=== PATIENT | male | born 1985 | race African-American/Black ===

== ENCOUNTER 2017-04-06 11:55 | Emergency (ER) | payer BC ==
[2017-04-06 12:08] VITALS: BP 128/84
[2017-04-06] MEDS ORDERED: Sodium Chloride 0.9% 10 ML Syringe FLUSH PRN (12:20)
[2017-04-06] MEDS ORDERED: Aspirin 81 MG Tab.Chew PO ONE (12:20)
--- NOTE | 2017-04-06 12:33 | EDM.PDOC ---
ED HPI GENERAL MEDICAL PROBLEM - General Chief Complaint: Chest Pain Stated Complaint: CHEST PAIN X 4 DAYS Time Seen by Provider: 04/06/17 12:10 Source of Information: Reports: Patient History Limitations: Reports: No Limitations - History of Present Illness INITIAL COMMENTS - FREE TEXT/NARRATIVE: 31-year-old male presents for evaluation treatment of chest pressure. Reports that he has been experiencing chest pressure for the last 4 days. He states when he first started he was sitting in class on Wednesday. He reports that discomfort as a pressure located on the upper left side of his chest and around the sternal notch. He states that it is painful to take a deep breath. He denies any lightheadedness, dizziness, leg pain, shortness of breath, nausea or vomiting. Patient reports his primary care provider is Dr. Cole. He has not established with a new provider since Dr. Corrales has left. States he's had similar episodes of this in the past and was diagnosed with inflammation. He reports that he was instructed to lose some weight which he did but is now starting to increase again. Duration: Day(s): (4) Chest Pain Score (Numeric/FACES): 5 - Related Data Allergies Allergy/AdvReac Type Severity Reaction Status Date / Time Penicillins Allergy Cannot Verified 04/06/17 12:05 Remember Home Meds: Home Meds Naproxen [Naprosyn] 500 mg PO Q12HR PRN #30 tablet 02/14/16 [Rx] Past Medical History - Past Health History Medical/Surgical History: Denies Medical/Surgical History Social & Family History - Tobacco Use Smoking Status *Q: Never Smoker - Alcohol Use Days Per Week of Alcohol Use: 1 - Recreational Drug Use Recreational Drug Use: No ED ROS GENERAL - Review of Systems Review Of Systems: See Below Constitutional: Denies: Fever Respiratory: Reports: Pleuritic Chest Pain. Denies: Shortness of Breath, Cough Cardiovascular: Reports: Chest Pain. Denies: Edema GI/Abdominal: Denies: Nausea, Vomiting Musculoskeletal: Denies: Leg Pain Neurological: Denies: Dizziness, Syncope ED EXAM, GENERAL - Physical Exam Exam: See Below Exam Limited By: No Limitations General Appearance: Alert, WD/WN, No Apparent Distress Eye Exam: Bilateral Eye: Normal Inspection Ears: Normal External Exam Nose: Normal Inspection Throat/Mouth: Normal Inspection, Normal Lips, Normal Voice, No Airway Compromise Respiratory/Chest: No Respiratory Distress, Lungs Clear, Normal Breath Sounds Cardiovascular: Normal Peripheral Pulses, Regular Rate, Rhythm, No Murmur GI/Abdominal: Soft, Non-Tender Neurological: Alert, Oriented, Normal Cognition Psychiatric: Normal Affect, Normal Mood Skin Exam: Warm, Dry, Normal Color EKG INTERPRETATION EKG Date: 04/06/17 Time: 12:15 Rhythm: NSR Rate (Beats/Min): 86 [place]: Normal P-Wave: Present QRS: Normal ST-T: Normal QT: Normal EKG Interpretation Comments: NSR at [address] segment elevation in V5, V6, I and II - diffuse early repolarization pattern. Essentially ECG is unchanged compared to one from . Reviewed by myself and Dr. Retana. Course - Vital Signs Last Recorded V/S: Last Vital Signs Temp 36.4 C 04/06/17 12:05 Pulse 90 04/06/17 12:05 Resp 16 04/06/17 12:05 BP 128/84 04/06/17 12:05 Pulse Ox 99 04/06/17 12:05 - Orders/Labs/Meds Orders: Active Orders 24 hr Category Date Time Status Cardiac Monitoring [RC] . DIRECTED Care 04/06/17 12:20 Active EKG Documentation Completion [RC] ASDIRECTED Care 04/06/17 12:44 Active Peripheral IV Care [RC] . DIRECTED Care 04/06/17 12:21 Active Sodium Chloride 0.9% [Saline Flush] Med 04/06/17 12:20 Active 10 ml FLUSH ASDIRECTED PRN Peripheral IV Insertion Adult [OM.PC] Routine Oth 04/06/17 12:20 Ordered EKG 12 Lead [EK] Stat Ther 04/06/17 12:44 Ordered Medication Orders Sodium Chloride (Saline Flush) 10 ml FLUSH ASDIRECTED PRN PRN Reason: Keep Vein Open Last Admin: 04/06/17 12:44 Dose: 10 ml Labs: Laboratory Tests 04/06/17 04/06/17 04/06/17 Range/Units 12:30 12:30 12:30 WBC 8.09 (4.23-9.07) K/mm3 RBC 5.33 (4.63-6.08) M/mm3 Hgb 15.3 (13.7-17.5) gm/L Hct 43.8 (40.1-51.0) % MCV 82.2 (79.0-92.2) fl MCH 28.7 (25.7-32.2) pg MCHC 34.9 (32.2-35.5) g/dl RDW Std Deviation 42.2 (35.1-43.9) fL Plt Count 163 (163-337) K/mm3 MPV 10.5 (9.4-12.3) fl Neut % (Auto) 66.4 (34.0-67.9) % Lymph % (Auto) 24.0 (21.8-53.1) % [place] % (Auto) 9.3 (5.3-12.2) % Eos % (Auto) 0.1 L (0.8-7.0) Baso % (Auto) 0.1 (0.1-1.2) % Neut # (Auto) 5.37 (1.78-5.38) K/mm3 Lymph # (Auto) 1.94 (1.32-3.57) K/mm3 [place] # (Auto) 0.75 (0.30-0.82) K/mm3 Eos # (Auto) 0.01 L (0.04-0.54) K/mm3 Baso # (Auto) 0.01 (0.01-0.08) K/mm3 PT 10.8 (8.0-13.0) SECONDS INR 0.99 APTT 29 (22-36) SECONDS D-Dimer, Quantitative 0.47 (0.19-0.59) mg/L Sodium 141 (136-145) mEq/L Potassium 3.6 (3.5-5.1) mEq/L Chloride 104 (98-107) mEq/L Carbon Dioxide 26 (21-32) mEq/L Anion Gap 14.6 (5-15) BUN 15 (7-18) mg/dL Creatinine 0.7 (0.7-1.3) mg/dL Est Cr Clr Drug Dosing 139.25 mL/min Estimated GFR (MDRD) > 60 (>60) mL/min BUN/Creatinine Ratio 21.4 H (14-18) Glucose 95 (74-106) mg/dL Calcium 9.2 (8.5-10.1) mg/dL Magnesium 1.9 (1.8-2.4) mg/dl Total Bilirubin 0.7 (0.2-1.0) mg/dL AST 18 (15-37) U/L ALT 48 (16-63) U/L Alkaline Phosphatase 63 (46-116) U/L CK-MB (CK-2) < 0.5 (0-3.6) ng/ml Troponin I < 0.017 (0.00-0.056) ng/mL Total Protein 7.9 (6.4-8.2) g/dl Albumin 4.2 (3.4-5.0) g/dl Globulin 3.7 gm/dL Albumin/Globulin Ratio 1.1 (1-2) Meds: Medications Generic Name Dose Route Start Last Admin Trade Name Freq PRN Reason Stop Dose Admin Sodium Chloride 10 ml 04/06/17 12:20 04/06/17 12:44 Saline Flush FLUSH 10 ml ASDIRECTED PRN Administration Keep Vein Open Discontinued Medications Generic Name Dose Route Start Last Admin Trade Name Freq PRN Reason Stop Dose Admin Aspirin 324 mg 04/06/17 12:20 04/06/17 12:43 Aspirin PO 04/06/17 12:21 324 mg ONETIME ONE Administration Al Hydroxide/Mg Hydroxide 30 0 ml 04/06/17 14:08 04/06/17 14:20 ml/ Lidocaine HCl 15 ml PO 04/06/17 14:09 45 ml ONETIME ONE Administration - Radiology Interpretation Free Text/Narrative:: chest xray shows no acute intrathoracic process. - Re-Assessments/Exams Free Text/Narrative Re-Assessment/Exam: 04/06/17 14:10 I reviewed the EKG, chest x-ray and lab results with the patient. Chest pain is currently 4 out of 10. He is not in any obvious distress. Plan will be to discharge him after a GI cocktail; I feel this is likely reflux causing his discomfort. Follow-up with family medicine within 1 week. Discharge instructions as documented. 04/06/17 14:31 Pain improved. Will discharge at this time. Departure - Departure Time of Disposition: 14:10 Disposition: Home, Self-Care 01 Condition: Fair Clinical Impression: Chest pain, non-cardiac Instructions: Nonspecific Chest Pain Referrals: PCP,None [Primary Care Provider] - Sam Keating [Physician] - Forms: ED Department Discharge Additional Instructions: Awuq-ake-objioge Tylenol and Motrin as needed for discomfort. I recommend starting an xwui-mup-esfqcqq PPI such as Nexium or Prilosec. Follow-up with family medicine within [address] Naranjo. Please call [phone] Naranjo. Please return to the ER if your symptoms change or worsen. - My Orders Last 24 Hours: My Active Orders 04/06/17 12:20 Cardiac Monitoring [RC] . DIRECTED Sodium Chloride 0.9% [Saline Flush] 10 ml FLUSH ASDIRECTED PRN Peripheral IV Insertion Adult [OM.PC] Routine 04/06/17 12:21 Peripheral IV Care [RC] . DIRECTED 04/06/17 12:44 EKG Documentation Completion [RC] ASDIRECTED EKG 12 Lead [EK] Stat - Assessment/Plan Last 24 Hours: My Active Orders 04/06/17 12:20 Cardiac Monitoring [RC] . DIRECTED Sodium Chloride 0.9% [Saline Flush] 10 ml FLUSH ASDIRECTED PRN Peripheral IV Insertion Adult [OM.PC] Routine 04/06/17 12:21 Peripheral IV Care [RC] . DIRECTED 04/06/17 12:44 EKG Documentation Completion [RC] ASDIRECTED EKG 12 Lead [EK] Stat
[2017-04-06] MEDS ORDERED: Alum Hydrox/Mag Hydrox/Simeth 30 ML, Lidocaine 2% 15 ML PO ONE ×2 (14:08)
--- NOTE | 2017-04-06 14:46 | CR ---
Chest: Portable view of the chest was obtained. Comparison: Prior chest x-ray of 02/14/16. Heart size and mediastinum are within normal limits for portable technique. Lungs are clear. Bony structures are grossly intact. Impression: 1. Nothing acute is identified on portable chest x-ray. Diagnostic code #1
== END 2017-04-06 14:52 | disposition home or self-care (01) ==
LOC: JD.ED 11:55
DX: R07.89 Other chest pain (principal); Z88.0 Allergy status to penicillin
CPT/HCPCS: 36415; 71010; 80053; 82553; 83735; 84484; 85025; 85379; 85610; 85730; 93005; 99285; A9270; J7050; 93010

== ENCOUNTER 2017-08-14 18:39 | Emergency (ER) | payer BC ==
[2017-08-14 18:54] VITALS: BP 116/74
--- NOTE | 2017-08-14 19:26 | EDM.PDOC ---
ED HPI GENERAL MEDICAL PROBLEM - General Chief Complaint: Chest Pain Stated Complaint: CHEST PAIN Time Seen by Provider: 08/14/17 19:10 Source of Information: Reports: Patient History Limitations: Reports: No Limitations - History of Present Illness INITIAL COMMENTS - FREE TEXT/NARRATIVE: The patient states that he has had sharp upper sternal chest pain waxing and waning over the past 4 days. The pain is made worse if he bends forward, but he has not noticed any difference if he is upright versus lying back. He reports dyspnea on exertion, but no dyspnea at rest. No recent nausea, diaphoresis, or sense of impending doom. The patient states that he has been taking pkow-evt-kfmkzsa Aleve over the past 2 days, with some relief. The patient states that he has had similar symptoms twice in the past, 4 years ago, and last year. He states that medical workup that time were negative. The patient does not have a PCP. Upper Chest Pain Score (Numeric/FACES): 6 - Related Data Allergies Allergy/AdvReac Type Severity Reaction Status Date / Time Penicillins Allergy Cannot Verified 08/14/17 18:51 Remember Home Meds: Home Meds Naproxen [Naprosyn] 500 mg PO Q12HR PRN #30 tablet 02/14/16 [Rx] Past Medical History - Past Health History Medical/Surgical History: Denies Medical/Surgical History Social & Family History - Tobacco Use Smoking Status *Q: Never Smoker Second Hand Smoke Exposure: No - Caffeine Use Caffeine Use: Reports: None - Alcohol Use Alcohol Use History: No - Recreational Drug Use Recreational Drug Use: No - Living Situation & Occupation Living situation: Reports: Single, with Significant Other (Fiance), with Family (3 kids) Occupation: Employed ([employer] WORK[employer]) ED ROS GENERAL - Review of Systems Review Of Systems: ROS reveals no pertinent complaints other than HPI. ED EXAM, GENERAL - Physical Exam Exam: See Below Exam Limited By: No Limitations General Appearance: Alert, WD/WN, No Apparent Distress Eye Exam: Bilateral Eye: Normal Inspection Ears: Normal External Exam, Hearing Grossly Normal Nose: Normal Inspection, No Blood Throat/Mouth: Normal Inspection, Normal Lips, Normal Voice, No Airway Compromise Head: Atraumatic, Normocephalic Neck: Normal Inspection, Full Range of Motion Respiratory/Chest: No Respiratory Distress, Lungs Clear, Normal Breath Sounds, No Accessory Muscle Use, Chest Non-Tender (including to upper sternum). No: Pleural Rub Cardiovascular: Normal Peripheral Pulses, Regular Rate, Rhythm, No Edema, No Gallop, No JVD, No Murmur, No Rub Peripheral Pulses: 4+: Radial (L), Radial (R) GI/Abdominal: Normal Bowel Sounds, Soft, Non-Tender, No Organomegaly, No Distention, No Abnormal Bruit, No Mass (Male) Exam: Deferred Rectal (Males) Exam: Deferred Back Exam: Normal Inspection, Full Range of Motion, NT Extremities: Normal Inspection, Normal Range of Motion, No Pedal Edema, Normal Capillary Refill Neurological: Alert, Oriented, Normal Cognition, No Motor/Sensory Deficits Psychiatric: Normal Affect Skin Exam: Warm, Dry, Intact, Normal Color, No Rash EKG INTERPRETATION EKG Date: 08/14/17 Time: 19:09 Rhythm: NSR Rate (Beats/Min): 85 [place]: Normal P-Wave: Present QRS: Normal ST-T: Elevated (diffuse, c/w pericarditis) QT: Normal Comparison: No Change (04/06/2017) Course - Vital Signs Last Recorded V/S: Last Vital Signs Temp 36.2 C 08/14/17 18:52 Pulse 86 08/14/17 18:52 Resp 18 08/14/17 18:52 BP 116/74 08/14/17 18:52 Pulse Ox 99 08/14/17 18:52 - Orders/Labs/Meds Orders: Active Orders 24 hr Category Date Time Status EKG Documentation Completion [RC] ASDIRECTED Care 08/14/17 19:17 Active Chest 2V [CR] Stat Exams 08/14/17 19:26 Taken EKG 12 Lead [EK] Stat Ther 08/14/17 19:16 Ordered Labs: Laboratory Tests 08/14/17 08/14/17 08/14/17 Range/Units 19:19 19:19 19:19 WBC 6.89 (4.23-9.07) K/mm3 RBC 4.78 (4.63-6.08) M/mm3 Hgb 14.0 (13.7-17.5) gm/L Hct 41.1 (40.1-51.0) % MCV 86.0 (79.0-92.2) fl MCH 29.3 (25.7-32.2) pg MCHC 34.1 (32.2-35.5) g/dl RDW Std Deviation 45.4 H (35.1-43.9) fL Plt Count 195 (163-337) K/mm3 MPV 10.7 (9.4-12.3) fl Neut % (Auto) 60.7 (34.0-67.9) % Lymph % (Auto) 27.9 (21.8-53.1) % [place] % (Auto) 10.6 (5.3-12.2) % Eos % (Auto) 0.6 L (0.8-7.0) Baso % (Auto) 0.1 (0.1-1.2) % Neut # (Auto) 4.18 (1.78-5.38) K/mm3 Lymph # (Auto) 1.92 (1.32-3.57) K/mm3 [place] # (Auto) 0.73 (0.30-0.82) K/mm3 Eos # (Auto) 0.04 (0.04-0.54) K/mm3 Baso # (Auto) 0.01 (0.01-0.08) K/mm3 PT 10.2 (8.0-13.0) SECONDS INR 0.95 APTT 29 (22-36) SECONDS D-Dimer, Quantitative 1.03 H (0.19-0.59) mg/L Sodium 140 (136-145) mEq/L Potassium 4.1 (3.5-5.1) mEq/L Chloride 103 (98-107) mEq/L Carbon Dioxide 30 (21-32) mEq/L Anion Gap 11.1 (5-15) BUN 13 (7-18) mg/dL Creatinine 1.1 (0.7-1.3) mg/dL Est Cr Clr Drug Dosing 85.42 mL/min Estimated GFR (MDRD) > 60 (>60) mL/min BUN/Creatinine Ratio 11.8 L (14-18) Glucose 92 (74-106) mg/dL Calcium 9.4 (8.5-10.1) mg/dL Total Bilirubin 0.3 (0.2-1.0) mg/dL AST 43 H (15-37) U/L ALT 57 (16-63) U/L Alkaline Phosphatase 83 (46-116) U/L Troponin I < 0.017 (0.00-0.056) ng/mL Total Protein 7.7 (6.4-8.2) g/dl Albumin 3.8 (3.4-5.0) g/dl Globulin 3.9 gm/dL Albumin/Globulin Ratio 1.0 (1-2) - Re-Assessments/Exams Free Text/Narrative Re-Assessment/Exam: 08/14/17 20:21 Two-view chest radiograph appears to be grossly normal. Cardiac silhouette is within normal limits. No pulmonary vascular congestion. No pleural effusions. No focal infiltrate. No pneumothorax. Formal read per the Radiologist pending. 08/14/17 20:34 Test results discussed with the patient. With the exception of the patient's ECG , the patient's workup is unremarkable. A D-dimer was ordered per chest pain protocol, however, since the patient's pain is felt in the upper sternum, and not in an area that has pulmonary pleura, I do not suspect a PE. The patient's history and ECG suggest pericarditis. The curious thing is that this is the third episode. I will discharge the patient home with recommendations that he take an cwrs-wzo-thjmhel NSAID such as Aleve or ibuprofen, as well as a referral to Cardiology. The patient requests a note for work so that he does not have to return until Wednesday. Departure - Departure Time of Disposition: 20:36 Disposition: Home, Self-Care 01 Condition: Good (Pericarditis) Clinical Impression: Pericarditis Qualifiers: Pericarditis type: unspecified type Chronicity: acute Qualified Code(s): I30.9 - Acute pericarditis, unspecified Instructions: Nonspecific Chest Pain, [id number] Referrals: Van Shwa MD [Resident] - Forms: ED Department Discharge, ED Return to Work/School Form Additional Instructions: You were seen in the emergency room for 4 days of upper central chest pain. Workup in the ER included blood work, a chest x-ray, and an ECG. Your ECG showed changes consistent with pericarditis. The remainder of her workup was unremarkable. You are MOST LIKELY suffering from pericarditis, a viral infection of the sac that your heart sits in. Take kvzy-dbs-tkyxuks ibuprofen, 2-3 tablets (400-600 mg) every 8 hours, with food, OR one tablet of douj-rbl-wjuclif Aleve every 12 hours, with food. A note for work has been written. You may return to work on 08/16/2017. Because this is the third time that this has happened, we recommend that you follow-up with Dr. Van Shaw, a [employer] in [place]. If any other problems, please do not hesitate to return to the ER. - My Orders Last 24 Hours: My Active Orders 08/14/17 19:16 EKG 12 Lead [EK] Stat 08/14/17 19:17 EKG Documentation Completion [RC] ASDIRECTED 08/14/17 19:26 Chest 2V [CR] Stat - Assessment/Plan Last 24 Hours: My Active Orders 08/14/17 19:16 EKG 12 Lead [EK] Stat 08/14/17 19:17 EKG Documentation Completion [RC] ASDIRECTED 08/14/17 19:26 Chest 2V [CR] Stat
--- NOTE | 2017-08-15 12:21 | CR ---
Chest: Two views of the chest were obtained. Comparison: Prior chest x-ray of 04/06/17. Heart size and mediastinum are within normal limits. Lungs appear to be clear. Bony structures are unremarkable. Impression: 1. Nothing acute is appreciated on two-view chest x-ray. Diagnostic code #1
== END 2017-08-14 21:01 | disposition home or self-care (01) ==
LOC: JD.ED 18:39
DX: I30.9 Acute pericarditis, unspecified (principal); Z88.0 Allergy status to penicillin
CPT/HCPCS: 36415; 71046; 71046-26; 80053; 84484; 85025; 85379; 85610; 85730; 93005; 93010; 99284-25; 99285-25

== ENCOUNTER 2017-12-11 05:53 | Day surgery (SDC) | payer BC, MEDICAID ==
[2017-12-11] MEDS ORDERED: HYDROmorphone 0.5 MG/0.5 ML SYRINGE IVPUSH ONE (06:23)
[2017-12-11] MEDS ORDERED: Metoclopramide 10 MG/2 ML SDV IVPUSH ONE (06:23)
--- NOTE | 2017-12-11 06:29 | EDM.PDOC ---
<Joe Pantoja - Last Filed: 12/11/17 10:46> ED HPI GENERAL MEDICAL PROBLEM - General Chief Complaint: Gastrointestinal Problem Stated Complaint: ANAL AREA PAIN Time Seen by Provider: 12/11/17 06:24 - Related Data Allergies Allergy/AdvReac Type Severity Reaction Status Date / Time Penicillins Allergy Cannot Verified 12/11/17 06:06 Remember Home Meds: Home Meds Naproxen [Naprosyn] 500 mg PO Q12HR PRN #30 tablet 02/14/16 [Rx] Course - Vital Signs Last Recorded V/S: Last Vital Signs Temp 36.5 C 12/11/17 15:30 Pulse 50 L 12/11/17 15:30 Resp 14 12/11/17 15:30 BP 104/68 12/11/17 15:30 Pulse Ox 97 12/11/17 15:30 - Orders/Labs/Meds Orders: Active Orders 24 hr Category Date Time Status Communication Order [RC] ROUTINE Care 12/11/17 13:56 Active Ready for Discharge [RC] PER UNIT ROUTINE Care 12/11/17 13:55 Active Verify Patient Consent Obtain [RC] ASDIRECTED Care 12/11/17 10:56 Active Pelvis w Cont [CT] Stat Exams 12/11/17 07:01 Taken Schedule Procedure [COMM] Urgent Oth 12/11/17 10:56 Ordered Labs: Laboratory Tests 12/11/17 12/11/17 Range/Units 06:25 06:25 WBC 5.84 (4.23-9.07) K/mm3 RBC 5.24 (4.63-6.08) M/mm3 Hgb 15.2 (13.7-17.5) gm/L Hct 44.1 (40.1-51.0) % MCV 84.2 (79.0-92.2) fl MCH 29.0 (25.7-32.2) pg MCHC 34.5 (32.2-35.5) g/dl RDW Std Deviation 43.6 (35.1-43.9) fL Plt Count 182 (163-337) K/mm3 MPV 10.8 (9.4-12.3) fl Neutrophils % (Manual) 37 L (40-60) % Band Neutrophils % 0 (0-10) % Lymphocytes % (Manual) 59 H (20-40) % Atypical Lymphs % 0 % Monocytes % (Manual) 4 (2-10) % Eosinophils % (Manual) 0 L (0.8-7.0) % Basophils % (Manual) 0 L (0.2-1.2) Platelet Estimate Adequate Plt Morphology Comment Normal RBC Morph Comment Normal Sodium 140 (136-145) mEq/L Potassium 3.7 (3.5-5.1) mEq/L Chloride 105 (98-107) mEq/L Carbon Dioxide 24 (21-32) mEq/L Anion Gap 14.7 (5-15) BUN 20 H (7-18) mg/dL Creatinine 1.0 (0.7-1.3) mg/dL Est Cr Clr Drug Dosing 93.10 mL/min Estimated GFR (MDRD) > 60 (>60) mL/min BUN/Creatinine Ratio 20.0 H (14-18) Glucose 85 (74-106) mg/dL Calcium 9.1 (8.5-10.1) mg/dL Total Bilirubin 0.5 (0.2-1.0) mg/dL AST 16 (15-37) U/L ALT 28 (16-63) U/L Alkaline Phosphatase 82 (46-116) U/L C-Reactive Protein < 0.2 (<1.0) mg/dL Total Protein 7.4 (6.4-8.2) g/dl Albumin 4.1 (3.4-5.0) g/dl Globulin 3.3 gm/dL Albumin/Globulin Ratio 1.2 (1-2) Meds: Medications Discontinued Medications Generic Name Dose Route Start Last Admin Trade Name Rigobertoq PRN Reason Stop Dose Admin Hydrocodone Bitart/Acetaminophen 1 tab 12/11/17 14:20 12/11/17 15:14 Roberts 325-5 Mg PO 12/11/17 14:21 1 tab ONETIME ONE Administration Bacitracin Confirm 12/11/17 12:44 Bacitracin Oint Administered 12/11/17 12:45 Dose 15 gm .ROUTE .STK-MED ONE Dexamethasone Confirm 12/11/17 13:41 Dexamethasone Administered 12/11/17 13:42 Dose 20 mg .ROUTE .STK-MED ONE Fentanyl Confirm 12/11/17 12:54 Sublimaze Administered 12/11/17 12:55 Dose 100 mcg .ROUTE .STK-MED ONE Glycopyrrolate Confirm 12/11/17 13:22 Administered 12/11/17 13:23 Dose 1 mg .ROUTE .STK-MED ONE Hydromorphone HCl 0.5 mg 12/11/17 06:23 12/11/17 06:32 Dilaudid IVPUSH 12/11/17 06:24 0.5 mg ONETIME ONE Administration Hydromorphone HCl 0.5 mg 12/11/17 14:45 Dilaudid IVPUSH 12/11/17 14:46 ONETIME ONE Hydromorphone HCl Confirm 12/11/17 14:27 12/11/17 14:28 Dilaudid Administered 12/11/17 14:28 0.5 mg Dose Administration 0.5 mg .ROUTE .STK-MED ONE Dextrose/Sodium Chloride 1,000 mls @ 250 mls/hr 12/11/17 06:30 12/11/17 06:34 Dextrose 5%-Normal Saline IV 250 mls/hr ASDIRECTED ERICK Administration Lidocaine HCl Confirm 12/11/17 12:55 Xylocaine-Mpf 1% Administered 12/11/17 12:56 Dose 4 mls @ as directed .ROUTE .STK-MED ONE Lactated Ringer's Confirm 12/11/17 14:11 Ringers, Lactated Administered 12/11/17 14:12 Dose 1,000 mls @ as directed .ROUTE .STK-MED ONE Iopamidol 150 ml 12/11/17 07:34 12/11/17 07:44 Isovue-300 (61%) IVPUSH 12/11/17 07:35 125 ml ONETIME ONE Administration Ketamine HCl Confirm 12/11/17 12:54 Ketalar Administered 12/11/17 12:55 Dose 500 mg .ROUTE .STK-MED ONE Ketorolac Tromethamine Confirm 12/11/17 13:41 Toradol Administered 12/11/17 13:42 Dose 30 mg .ROUTE .STK-MED ONE Lidocaine HCl Confirm 12/11/17 12:44 12/11/17 13:28 Xylocaine-Mpf 1% Administered 12/11/17 12:45 3 ml Dose Administration 30 ml .ROUTE .STK-MED ONE Metoclopramide HCl 7.5 mg 12/11/17 06:23 12/11/17 06:32 Reglan IVPUSH 12/11/17 06:24 7.5 mg ONETIME ONE Administration Midazolam HCl Confirm 12/11/17 12:54 Versed 1 Mg/Ml Administered 12/11/17 12:55 Dose 2 mg .ROUTE .STK-MED ONE Ondansetron HCl Confirm 12/11/17 14:11 Zofran Administered 12/11/17 14:12 Dose 4 mg .ROUTE .STK-MED ONE Propofol Confirm 12/11/17 12:54 Diprivan 20 Ml Administered 12/11/17 12:55 Dose 600 mg .ROUTE .STK-MED ONE Sodium Chloride 10 ml 12/11/17 07:34 12/11/17 07:46 Saline Flush FLUSH 10 ml ONETIME PRN Administration IV FLUSH - Re-Assessments/Exams Free Text/Narrative Re-Assessment/Exam: 12/11/17 10:[address] of his pelvis showed nothing acute. Dr Alexandra came to see the patient and he could not examine the affected area so he will take him to the OR to do an exam. Departure - Departure Time of Disposition: 10:50 Disposition: DC/Tfer to [facility] Condition: Good Clinical Impression: Rectal pain, Acute posterior anal fissure - Discharge Information - My Orders Last 24 Hours: My Active Orders 12/11/17 07:01 Pelvis w Cont [CT] Stat - Assessment/Plan Last 24 Hours: My Active Orders 12/11/17 07:01 Pelvis w Cont [CT] Stat <Irwin Retana - Last Filed: 12/11/17 19:54> ED HPI GENERAL MEDICAL PROBLEM - General Source of Information: Reports: Patient History Limitations: Reports: No Limitations - History of Present Illness INITIAL COMMENTS - FREE TEXT/NARRATIVE: 32-year-old male presents to the ED with a 10 day history of gradually worsening anal pain. To the point that he can barely walk or sit. Nose noted fever or chills. Bowel movements are tremendously painful. Even passing his water is painful. He has tried nifedipine cream as he had an anal fissure 4 months ago treated successfully with this regime. However it has not helped at this time. Appreciates pain is worse on the right side of the anus as compared to the left. Bowel moments tend to be well formed and sometimes hard to pass. Notes occasional streak of blood on the outside of the stool. Usually no dripping of blood into the toilet. Didn't sleep at all last night due to the intensity of pain. Onset: Gradual Onset Date: 12/01/17 Duration: Day(s):, Constant, Getting Worse Location: Reports: Other (Perianal pain right side) Quality: Reports: Ache, Throbbing Severity: Severe (8 or 9 out of 10.) Improves with: Reports: None Worsens with: Reports: Other Context: Reports: Other (Spontaneous occurrence.). Denies: Activity, Exercise, Lifting, Sick Contact, Trauma Associated Symptoms: Denies: Confusion, Chest Pain, Cough, cough w sputum, Diaphoresis, Fever/Chills, Headaches, Loss of Appetite, Malaise, Nausea/Vomiting , Rash, Seizure, Shortness of Breath, Syncope Treatments GAS APPLIANCE ADJUSTER: Reports: NSAIDS (Motrin primarily.) Rectal Pain Score (Numeric/FACES): 9 Past Medical History - Past Health History Medical/Surgical History: Denies Medical/Surgical History Cardiovascular History: Reports: Other (See Below) Other Cardiovascular History: pericarditis Social & Family History - Family History Family Medical History: Noncontributory - Tobacco Use Smoking Status *Q: Never Smoker Second Hand Smoke Exposure: No - Caffeine Use Caffeine Use: Reports: None - Recreational Drug Use Recreational Drug Use: No - Living Situation & Occupation Living situation: Reports: Single, with Significant Other (Fiance), with Family (3 kids) Occupation: Employed ([employer]) ED ROS GENERAL - Review of Systems Review Of Systems: See Below Constitutional: Reports: Malaise, Weakness, Fatigue, Decreased Appetite (From not being able to sleep). Denies: Fever, Chills HEENT: Reports: No Symptoms Respiratory: Reports: No Symptoms Cardiovascular: Reports: No Symptoms Endocrine: Reports: Fatigue GI/Abdominal: Reports: Hematochezia (Noted on outside of stool with bowel movements.), Other (Rectal pain as discussed in history of present illness.) : Reports: Other (Rectal pain even with voiding.) Musculoskeletal: Reports: No Symptoms Skin: Reports: No Symptoms Neurological: Reports: No Symptoms Psychiatric: Reports: No Symptoms Hematologic/Lymphatic: Reports: No Symptoms Immunologic: Reports: No Symptoms ED EXAM, GI/ABD - Physical Exam Exam: See Below Exam Limited By: No Limitations General Appearance: Alert, WD/WN, Moderate Distress Eyes: Bilateral: Normal Appearance Throat/Mouth: Normal Inspection, Normal Lips, Normal Oropharynx Neck: Normal Inspection, Supple, Non-Tender, Full Range of Motion. No: Lymphadenopathy (R) Respiratory/Chest: No Respiratory Distress, Lungs Clear, Normal Breath Sounds, No Accessory Muscle Use, Chest Non-Tender Cardiovascular: Normal Peripheral Pulses, Regular Rate, Rhythm, No Edema, No Gallop, No Murmur GI/Abdominal Exam: Normal Bowel Sounds, Soft, Non-Tender, No Organomegaly, No Distention, No Abnormal Bruit, No Mass, Pelvis Stable (Male) Exam: No Hernia Rectal (Males) Exam: Tenderness (Patient has extreme tenderness on palpation of the right side of the anus. No obvious abscess or fissure evident. The suspicion is that he has an abscess right. Anal. He is too painful to allow) Back Exam: Normal Inspection, Full Range of Motion Extremities: Normal Inspection, Normal Range of Motion, Non-Tender, No Pedal Edema Neurological: Alert, Oriented, CN II-XII Intact, Normal Cognition Psychiatric: Normal Affect, Normal Mood Skin Exam: Warm, Dry, Intact, Normal Color, No Rash Course - Orders/Labs/Meds Labs: Laboratory Tests 12/11/17 12/11/17 Range/Units 06:25 06:25 WBC 5.84 (4.23-9.07) K/mm3 RBC 5.24 (4.63-6.08) M/mm3 Hgb 15.2 (13.7-17.5) gm/L Hct 44.1 (40.1-51.0) % MCV 84.2 (79.0-92.2) fl MCH 29.0 (25.7-32.2) pg MCHC 34.5 (32.2-35.5) g/dl RDW Std Deviation 43.6 (35.1-43.9) fL Plt Count 182 (163-337) K/mm3 MPV 10.8 (9.4-12.3) fl Neutrophils % (Manual) 37 L (40-60) % Band Neutrophils % 0 (0-10) % Lymphocytes % (Manual) 59 H (20-40) % Atypical Lymphs % 0 % Monocytes % (Manual) 4 (2-10) % Eosinophils % (Manual) 0 L (0.8-7.0) % Basophils % (Manual) 0 L (0.2-1.2) Platelet Estimate Adequate Plt Morphology Comment Normal RBC Morph Comment Normal Sodium 140 (136-145) mEq/L Potassium 3.7 (3.5-5.1) mEq/L Chloride 105 (98-107) mEq/L Carbon Dioxide 24 (21-32) mEq/L Anion Gap 14.7 (5-15) BUN 20 H (7-18) mg/dL Creatinine 1.0 (0.7-1.3) mg/dL Est Cr Clr Drug Dosing 93.10 mL/min Estimated GFR (MDRD) > 60 (>60) mL/min BUN/Creatinine Ratio 20.0 H (14-18) Glucose 85 (74-106) mg/dL Calcium 9.1 (8.5-10.1) mg/dL Total Bilirubin 0.5 (0.2-1.0) mg/dL AST 16 (15-37) U/L ALT 28 (16-63) U/L Alkaline Phosphatase 82 (46-116) U/L C-Reactive Protein < 0.2 (<1.0) mg/dL Total Protein 7.4 (6.4-8.2) g/dl Albumin 4.1 (3.4-5.0) g/dl Globulin 3.3 gm/dL Albumin/Globulin Ratio 1.2 (1-2) Meds: Medications Discontinued Medications Generic Name Dose Route Start Last Admin Trade Name Ismael PRN Reason Stop Dose Admin Hydrocodone Bitart/Acetaminophen 1 tab 12/11/17 14:20 12/11/17 15:14 Roberts 325-5 Mg PO 12/11/17 14:21 1 tab ONETIME ONE Administration Bacitracin Confirm 12/11/17 12:44 Bacitracin Oint Administered 12/11/17 12:45 Dose 15 gm .ROUTE .STK-MED ONE Dexamethasone Confirm 12/11/17 13:41 Dexamethasone Administered 12/11/17 13:42 Dose 20 mg .ROUTE .STK-MED ONE Fentanyl Confirm 12/11/17 12:54 Sublimaze Administered 12/11/17 12:55 Dose 100 mcg .ROUTE .STK-MED ONE Glycopyrrolate Confirm 12/11/17 13:22 Administered 12/11/17 13:23 Dose 1 mg .ROUTE .STK-MED ONE Hydromorphone HCl 0.5 mg 12/11/17 06:23 12/11/17 06:32 Dilaudid IVPUSH 12/11/17 06:24 0.5 mg ONETIME ONE Administration Hydromorphone HCl 0.5 mg 12/11/17 14:45 Dilaudid IVPUSH 12/11/17 14:46 ONETIME ONE Hydromorphone HCl Confirm 12/11/17 14:27 12/11/17 14:28 Dilaudid Administered 12/11/17 14:28 0.5 mg Dose Administration 0.5 mg .ROUTE .STK-MED ONE Dextrose/Sodium Chloride 1,000 mls @ 250 mls/hr 12/11/17 06:30 12/11/17 06:34 Dextrose 5%-Normal Saline IV 250 mls/hr ASDIRECTED ERICK Administration Lidocaine HCl Confirm 12/11/17 12:55 Xylocaine-Mpf 1% Administered 12/11/17 12:56 Dose 4 mls @ as directed .ROUTE .STK-MED ONE Lactated Ringer's Confirm 12/11/17 14:11 Ringers, Lactated Administered 12/11/17 14:12 Dose 1,000 mls @ as directed .ROUTE .STK-MED ONE Iopamidol 150 ml 12/11/17 07:34 12/11/17 07:44 Isovue-300 (61%) IVPUSH 12/11/17 07:35 125 ml ONETIME ONE Administration Ketamine HCl Confirm 12/11/17 12:54 Ketalar Administered 12/11/17 12:55 Dose 500 mg .ROUTE .STK-MED ONE Ketorolac Tromethamine Confirm 12/11/17 13:41 Toradol Administered 12/11/17 13:42 Dose 30 mg .ROUTE .STK-MED ONE Lidocaine HCl Confirm 12/11/17 12:44 12/11/17 13:28 Xylocaine-Mpf 1% Administered 12/11/17 12:45 3 ml Dose Administration 30 ml .ROUTE .STK-MED ONE Metoclopramide HCl 7.5 mg 12/11/17 06:23 12/11/17 06:32 Reglan IVPUSH 12/11/17 06:24 7.5 mg ONETIME ONE Administration Midazolam HCl Confirm 12/11/17 12:54 Versed 1 Mg/Ml Administered 12/11/17 12:55 Dose 2 mg .ROUTE .STK-MED ONE Ondansetron HCl Confirm 12/11/17 14:11 Zofran Administered 12/11/17 14:12 Dose 4 mg .ROUTE .STK-MED ONE Propofol Confirm 12/11/17 12:54 Diprivan 20 Ml Administered 12/11/17 12:55 Dose 600 mg .ROUTE .STK-MED ONE Sodium Chloride 10 ml 12/11/17 07:34 12/11/17 07:46 Saline Flush FLUSH 10 ml ONETIME PRN Administration IV FLUSH - Radiology Interpretation Free Text/Narrative:: 32-year-old male presents the ED with gradually worsening perirectal pain on the right side for 10 days. He has tried nifedipine cream as he had an anal fissure in the past about 4 months ago with successful treatment. He has tried it again with no relief. Currently the pain is constant throbbing he can't sit and barely walk. He has no noted fever or chills. Examination shows right-sided perianal tenderness but unable to facilitate a rectal exam due to the severity of his pain. This suggests that he is up perianal abscess. Plan IV D5 normal saline at 250 mils per hour. Will give him Dilaudid 0.5 mg IV and Reglan 7.5 mg IV for pain and nausea relief. Routine labs to be performed. CT of the pelvis will be ordered with intravenous contrast. - Re-Assessments/Exams Free Text/Narrative Re-Assessment/Exam: 12/11/17 07:46 patient reports that he is much more comfortable after IV analgesia. Plan will be to proceed with CT of the pelvis with IV contrast to rule out a right-sided perianal abscess. Labs are now back.Labs are back revealing essentially a normal white count at 5.84 with 59% lymphocytes suggesting a viral infection. There is 37% neutrophils. Hemoglobin is 15.2 with hematocrit of 44.1. Sodium is 140 with a potassium of 3.7. Chloride 105 with a bicarbonate 24. And a gap is 14.7. BUNs 20. Creatinine is 1.0. GFR is greater than 60. Glucose is 85. Calcium is 9.1. Liver function is normal. C-reactive protein is less than 0.2. These labs did not suggest any abscess is likely causing his perianal pain.. Patient may well need examination under anesthesia as currently unable to proceed with rectal examination due to the severity of his pain. I have discussed the case with Dr. Prado and tentatively he will see him in the ED this morning as well. Departure - Discharge Information *PRESCRIPTION DRUG MONITORING PROGRAM REVIEWED*: Not Applicable *COPY OF PRESCRIPTION DRUG MONITORING REPORT IN PATIENT SHERRI: Not Applicable
[2017-12-11] MEDS ORDERED: Dextrose 5%-0.9% NaCl 1,000 ML IV SCH (06:30)
[2017-12-11] MEDS ORDERED: Iopamidol 612 MG/ML 150 ML Bottle IVPUSH ONE (07:34)
[2017-12-11] MEDS ORDERED: Sodium Chloride 0.9% 10 ML Syringe FLUSH PRN (07:34)
--- NOTE | 2017-12-11 11:21 | HP ---
DATE OF ADMISSION: 12/11/2017 HISTORY OF PRESENT ILLNESS: A 32-year-old came into the ER with a 45-[id number]-[id number]-week history of anal pain. He found the pain gradually increasing in that he could not walk, it hurts. He had, about a couple of months ago, pain in that area, which was diagnosed as a fissure and was given nifedipine cream. This resolved the issue. However, 2 weeks ago, this pain came back. He was seen and nifedipine cream prescribed, but has not been helpful. The patient has been fearful to eat because of the pain and finds it especially painful with a bowel movement. He has not had any rectal bleeding, except on occasion and has not had any chills or fever. CT scan did not show an abscess. PAST MEDICAL HISTORY: The patient's past medical history is that of good health. ALLERGIES: Penicillin allergy in the family, but he says he is not allergic to it. SOCIAL HISTORY: Never smoked. Never drank. 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 REVIEW OF SYSTEMS: No chest pain, shortness of breath, cough, hoarseness, wheezing, fainting, weakness, numbness, convulsions, nausea, vomiting, or indigestion. PHYSICAL EXAMINATION: GENERAL: Alert and cooperative male. VITAL SIGNS: Temperature 97, pulse 77, respirations 16, and blood pressure 131/81. EYES: Sclerae white. Extraocular muscle motion normal. ORAL CAVITY: Healthy mucous membrane with mouth and tongue. NECK: Supple. No nodes. No thyromegaly. Trachea midline. LUNGS: Clear. No rales, rhonchi, fremitus, or dullness. HEART: Heart tones, regular rate. No S3, S4, jugular venous distention or murmurs. ABDOMEN: Soft. No tenderness, guarding, or rebound. EXTREMITIES: Upper and lower extremities, no angulation or deformities. PSYCHIATRIC: Normal. SKIN: Warm and dry. NEUROLOGIC: No sensorineural deficit. Cranial nerves 3 through 12 intact. Normal cognition. RECTAL: Tender. Unable to do a real clean rectal exam. ASSESSMENT: Anal pain. PLAN: For examination under anesthesia, possible sphincterotomy. Discussed this with the patient, risks and complications, he understands and consents. Lab work reviewed. MMODAL /[id number]
[2017-12-11] MEDS ORDERED: Lidocaine 1% 30 ML SDV ONE (12:44)
[2017-12-11] MEDS ORDERED: Bacitracin Oint 15 GM Tube ONE (12:44)
[2017-12-11] MEDS ORDERED: fentaNYL 100 MCG/2 ML SDV ONE (12:54)
[2017-12-11] MEDS ORDERED: Propofol 200 MG/20 ML SDV ONE (12:54)
[2017-12-11] MEDS ORDERED: Midazolam 1 MG/ML 2 ML SDV ONE (12:54)
[2017-12-11] MEDS ORDERED: Ketamine 500 mg/10 ML MDV ONE (12:54)
[2017-12-11] MEDS ORDERED: Lidocaine 1% 4 ML ONE (12:55)
[2017-12-11] MEDS ORDERED: Dexamethasone 4 MG/ML 5 ML MDV ONE (13:41)
[2017-12-11] MEDS ORDERED: Ketorolac 30 MG/ML SDV ONE (13:41)
--- NOTE | 2017-12-11 13:53 | PCM.OPNOTE ---
- General Post-Op/Procedure Note Date of Surgery/Procedure: 12/11/17 Operative Procedure(s): examination under anesthesia and left lateral sphincterotomy Pre Op Diagnosis: anal pain Post-Op Diagnosis: Same/posterior anal fissure with sentinal tag Anesthesia Technique: MAC Primary Surgeon: Gerald Alexandra EBL in mLs: 5 Complications: None Condition: Good
--- NOTE | 2017-12-11 14:05 | PCM48HPAN ---
Post Anesthesia Note - EVALUATION WITHIN 48HRS OF ANESTHETIC Vital Signs in Normal Range: Yes Patient Participated in Evaluation: Yes Respiratory Function Stable: Yes Airway Patent: Yes Cardiovascular Function Stable: Yes Hydration Status Stable: Yes Pain Control Satisfactory: Yes Nausea and Vomiting Control Satisfactory: Yes Mental Status Recovered: Yes
[2017-12-11] MEDS ORDERED: Ondansetron 4 MG/2 ML SDV ONE (14:11)
[2017-12-11] MEDS ORDERED: Lactated Ringers 1,000 ML ONE (14:11)
[2017-12-11] MEDS ORDERED: Acetaminophen/HYDROcodone 325-5 MG Tab PO ONE (14:20)
[2017-12-11] MEDS ORDERED: HYDROmorphone 0.5 MG/0.5 ML Syringe ONE (14:27)
[2017-12-11] MEDS ORDERED: HYDROmorphone 0.5 MG/0.5 ML Syringe IVPUSH ONE (14:45)
[2017-12-11 17:23] VITALS: BP 104/68
--- NOTE | 2017-12-13 08:34 | CT ---
CT pelvis Technique: Multiple axial sections through the pelvis were obtained. Intravenous contrast was utilized. No oral contrast has been given. Delayed images were also obtained. Findings: Delayed images show contrast within nondilated distal ureters and within the bladder. Perirectal fat appears preserved. No inflammatory change is seen around the rectum. No soft tissue air is seen within the perirectal soft tissues. Soft tissue material is seen within the rectum which presumably represents stool. Seminal vesicles and prostate gland appear within normal limits by CT exam. No free fluid is seen. Iliac vessels appear within normal limits. No inguinal adenopathy is seen. Bone window settings were reviewed which show no acute osseous abnormality. Impression: 1. No abnormality is appreciated on CT study of the pelvis. Diagnostic code #1 MTDD
--- NOTE | 2017-12-13 08:40 | OR ---
DATE OF OPERATION: 12/11/2017 SURGEON: Gerald Alexandra MD PREOPERATIVE DIAGNOSIS: Anal pain with posterior anal fissure. POSTOPERATIVE DIAGNOSIS: Anal pain with posterior anal fissure. OPERATION PERFORMED: Left lateral sphincterotomy done under IV sedation local anesthetic and 1% Xylocaine. DESCRIPTION OF PROCEDURE: The patient was taken to the operating room, placed in supine position, connected to monitoring equipment, given IV sedation, and placed in lithotomy position. Perianal area prepped with Betadine, draped off in a sterile fashion. Perianal exam was unremarkable. Rectal exam did not show any masses and a speculum exam showed a posterior anal fissure. Left lateral sphincterotomy was then performed by placing a speculum in the anus, putting the internal sphincter on stretch and then anesthetized the skin over the sphincter and incising the skin and then the internal sphincter muscle. Pressure was then placed. Bleeding stopped and this completed the procedure. The dressing was placed and the patient tolerated the procedure and sent to recovery room in a stable condition. ANESTHESIA: ESTIMATED BLOOD LOSS: MMODAL /[id number]
--- NOTE | 2017-12-13 08:43 | OR ---
DATE OF OPERATION: 12/11/2017 SURGEON: Gerald Alexandra MD ADDENDUM: ESTIMATED BLOOD LOSS: 5 mL. FINDINGS: Posterior anal fissure with sentinel tag. MMODAL /[id number]
== END 2017-12-11 15:45 | disposition home or self-care (01) ==
LOC: JD.ED 05:53 → JD.SDS 12:50
PROVIDERS: ATTEND Surgery
DX: K60.2 Anal fissure, unspecified (principal); Z88.0 Allergy status to penicillin
CPT/HCPCS: 36415; 46080; 72193; 80053; 85007; 85027; 86140; 96361; 96374; 96375; 99285; A9270; J1100; J1170; J1885; J2250; J2405; J2704; J2765; J3010; J7042; J7050; J7120; Q9967; J2001